=== PATIENT | male | born 1950 | race Caucasian/White ===

== ENCOUNTER 2020-08-02 10:03 | Day surgery (SDC) | payer BC ==
[2020-08-01 09:41] VITALS: BMI 26.4
[2020-08-02] MEDS ORDERED: Lidocaine 1% MPF 2 ML VIAL ONE (10:20)
[2020-08-02] MEDS ORDERED: PROPOFOL 20 ML ONE ×2 (12:22→12:35)
[2020-08-02] MEDS ORDERED: Lidocaine 1% PF 5 ML VIAL ONE (12:35)
== END 2020-08-02 13:52 | disposition home or self-care (01) ==
LOC: CSHSDC 10:03
PROVIDERS: ATTEND Internal Medicine Gastroenterology
DX: Z12.11 Encounter for screening for malignant neoplasm of colon (principal); D12.4 Benign neoplasm of descending colon; K57.30 Diverticulosis of large intestine without perforation or abscess without bleeding; D64.9 Anemia, unspecified
CPT/HCPCS: 88305; J2704

== ENCOUNTER 2024-02-14 14:47 | Outpatient (CLI) | payer MEDICARE, BC | END 2024-02-14 14:48 | disposition home or self-care (01) | LOC: CSHMRI 14:47 | PROVIDERS: ATTEND Psychiatry & Neurology Neuromuscular Medicine | DX: R41.3 Other amnesia (principal); R41.89 Other symptoms and signs involving cognitive functions and awareness; I67.89 Other cerebrovascular disease; G31.9 Degenerative disease of nervous system, unspecified | CPT/HCPCS: 70551 ==